=== PATIENT | female | born 1995 | race Caucasian/White ===

== ENCOUNTER 2025-02-03 10:50 | Emergency (ER) | payer OTHER, SELFPAY ==
--- NOTE | 2025-02-03 10:55 | ED_ITS ---
HPI - Skin/Abscess/Foreign Bdy General Chief complaint: Skin/Abscess/Foreign Body Stated complaint: Staph Infection Source: patient and RN notes reviewed Mode of arrival: ambulatory Limitations: no limitations History of Present Illness HPI narrative: Patient is a 29-year-old female who presents to the [facility] with complaints of rash to her chin. She states that the rash started yesterday after she wore quite a lot of makeup for a bridal shower. Patient states that she started feeling flushed in the area where the rash is prior to the rash developing. She states that she has had a similar rash in the past that was treated with Mupirocin and Bactrim with success. Patient arrived to the ED with honey-crusted rash to her chin with clear yellow liquid drainage. Related Data Allergies Allergy/AdvReac Type Severity Reaction Status Date / Time No Known Allergies Allergy Unknown Verified 02/03/25 10:52 Review of Systems Review of Systems: CONSTITUTIONAL: Denies fever, chills, or sweats. EYES: Denies visual changes, redness, or discharge. ENT: Denies otalgia and sore throat CARDIOVASCULAR: Denies chest pain, palpitations, or edema. RESPIRATORY: Denies cough or dyspnea. GASTROINTESTINAL: Denies abdominal pain, nausea, vomiting, or diarrhea. GENITOURINARY: Denies dysuria or hematuria. SKIN: Reports rash. MUSCULOSKELETAL: Denies back pain, joint pain, or myalgia. NEUROLOGIC: Denies headache, numbness, or weakness. Pertinent positives per HPI. PMFSH Comments At the time of my signature, I reviewed and agree with the nursing past medical, surgical, social, and family history. There is no relevant family history pertinent to the patient complaint. Exam Narrative: GENERAL: This is a well-nourished, well-developed patient, in no apparent distress. HEAD: normocephalic, atraumatic. EYES: Sclera clear/white. Vision is grossly intact. EARS: External ears normal. Hearing grossly intact. NOSE: External nose normal with no obvious nasal discharge, nares without redness, no rhinorrhea. THROAT: Mucous membranes moist, posterior pharynx clear. NECK: Neck supple, non-tender without lymphadenopathy, masses or thyromegaly. CARDIOVASCULAR: Regular rate and rhythm without murmurs, gallops, or rubs. RESPIRATORY: Clear to auscultation. Breath sounds equal bilaterally. No wheezes, rales, or rhonchi. GASTROINTESTINAL: Abdomen soft, non-tender, nondistended. Bowel sounds are active. No hepato-splenomegaly, or palpable masses. No guarding. SKIN: Honey-crusted rash to chin with clear yellow liquid drainage; consistent with impetigo. NEURO: awake, alert, and oriented to person, place and time. There were no obvious focal neurologic abnormalities. Course Course Level of Care: Express Care Visit Vital Signs Vital signs: Vital Signs Temperature 99.1 F 02/03/25 10:59 Pulse Rate 56 L 02/03/25 10:59 Respiratory Rate 16 02/03/25 10:59 Blood Pressure 126/74 02/03/25 10:59 Pulse Oximetry 99 02/03/25 10:59 Temperature 99.1 F 02/03/25 10:59 Pulse Rate 56 L 02/03/25 10:59 Respiratory Rate 16 02/03/25 10:59 Blood Pressure 126/74 02/03/25 10:59 Pulse Oximetry 99 02/03/25 10:59 Reviewed MDM - Skin/Abscess/Foreign Bdy MDM Narrative Medical decision making narrative: Clean with soap and water only; Avoid using alcohol and peroxide. Elevate the affected area if possible Alternate Tylenol/ibuprofen for as needed for pain Acetaminophen(Tylenol) 650- 1000mg every 4-6hours with max of 4000mg/day. Nonsteroidal anti-inflammatory agent (NSAIDs-ibuprofen): 400mg every 4-6hours with max 2400mg/day Take antibiotic until it's gone. Please schedule a follow up visit with your personal physician for further evaluation and treatment within 3-5days OR if your symptoms persist, change or worsen significantly before you can contact your personal physician then please, without delay, go to the emergency department for further evaluation. Differential Diagnosis Differential diagnosis: Likely abscess of skin or subcutaneous tissue, cellulitis, impetigo and contact dermatitis Critical Care Time Critical Care Time Critical Care Time: No Discharge Plan Discharge Clinical Impression: Impetigo Patient Disposition: Home, Self-Care Condition: Stable Instructions: Antibiotic Form, Impetigo (ED) Additional Instructions: Clean with soap and water only; Avoid using alcohol and peroxide. Elevate the affected area if possible Alternate Tylenol/ibuprofen for as needed for pain Acetaminophen(Tylenol) 650- 1000mg every 4-6hours with max of 4000mg/day. Nonsteroidal anti-inflammatory agent (NSAIDs-ibuprofen): 400mg every 4-6hours with max 2400mg/day Take antibiotic until it's gone. Please schedule a follow up visit with your personal physician for further evaluation and treatment within 3-5days OR if your symptoms persist, change or worsen significantly before you can contact your personal physician then please, without delay, go to the emergency department for further evaluation. Patient Language: Spanish Prescriptions: New mupirocin [Centany] 2 % ointment 1 applic topical TID Qty: 50 0RF sulfamethoxazole-trimethoprim 800-160 mg tablet 1 tablet PO Q12H 10 Days Qty: 20 0RF Follow-up/Referrals: PHYSICIAN,LIFE ENRICHMENT MANAGER [Primary Care Provider] - Time of Disposition: 11:19
[2025-02-03 10:59] VITALS: BP 126/74; PULSE 56; RESP 16; TEMP 37.3; O2SAT 99
== END 2025-02-03 11:20 | disposition home or self-care (01) ==
PROVIDERS: Emergency Provider Nurse Practitioner
DX: L01.00 Impetigo, unspecified (principal)
CPT/HCPCS: 87070; 87075; 87205; 99203; G0463

== ENCOUNTER 2025-02-26 18:09 | Emergency (ER) | payer OTHER, SELFPAY ==
--- NOTE | 2025-02-26 18:11 | ED.SKABFB ---
HPI - Skin/Abscess/Foreign Bdy General Chief complaint: Skin/Abscess/Foreign Body Stated complaint: RASH Time Seen by Provider: 02/26/25 18:10 Source: patient Mode of arrival: ambulatory Limitations: no limitations History of Present Illness HPI narrative: Sammy is a 29-year-old female patient presenting to the clinic today with complaints of a rash to her face. She reports that this is been going on for a couple weeks. She is getting in the next week and a half and is wanting the rash gone. States that she came in was diagnosed with impetigo and given prescription for Bactrim and mupirocin. States that the rash has improved however it is still there and seems to be getting worse. Has finished the Bactrim antibiotic. Cultures were done at the time of visit and were positive for Propionibacterium acnes/Cutibacterium acnes. 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 Related Data Allergies Allergy/AdvReac Type Severity Reaction Status Date / Time No Known Allergies Allergy Unknown Verified 02/26/25 18:14 Review of Systems Review of Systems: Pertinent positives per HPI. Patient denies any fever, chills, headache, visual changes, dizziness, cough, runny nose, sore throat, shortness of breath, chest pain, palpitations, nausea, vomiting, diarrhea, constipation, abdominal pain, or any urinary issues. PMFSH Comments At the time of my signature, I reviewed and agree with the nursing past medical, surgical, social, and family history. There is no relevant family history pertinent to the patient complaint. Exam Narrative: General: Well-developed, well nourished, in no apparent distress Head: Normocephalic, atraumatic. Cardio: Regular rate and rhythm, s1 and s2 normal, no murmur appreciated. Resp: Clear to auscultation bilaterally, no rhonchi, rales, wheezing or rubs. Integumentary: [place], warm, and dry, pustular acne to chin and cheeks. Course Course Emergency Course: Portions of this record may have been created with voice recognition software. Level of Care: Express Care Visit Vital Signs Vital signs: Vital Signs Temperature 37.1 C 02/26/25 18:21 Pulse Rate 57 L 02/26/25 18:21 Respiratory Rate 16 02/26/25 18:21 Blood Pressure 114/82 02/26/25 18:21 Pulse Oximetry 100 02/26/25 18:21 Temperature 37.1 C 02/26/25 18:21 Pulse Rate 57 L 02/26/25 18:21 Respiratory Rate 16 02/26/25 18:21 Blood Pressure 114/82 02/26/25 18:21 Pulse Oximetry 100 02/26/25 18:21 Vital signs reviewed MDM - Skin/Abscess/Foreign Bdy MDM Narrative Medical decision making narrative: At the time of visit patient is resting comfortably on the exam table. Patient appears to be nontoxic. Plan: I suspect patient has acne. Prescription for clindamycin and benzyl peroxide was sent to the pharmacy. Patient is adamant that this is caused by demodex mites. Sent in prescription for permethrin cream to use if other treatment is not affective. Recommend following up with a gathering machine feeder as soon as possible. Supportive measures were discussed with the patient and they voiced understanding discharge instructions and agrees to treatment plan. Return precautions reviewed Differential Diagnosis Differential diagnosis: Likely abscess of skin or subcutaneous tissue, viral exanthem, dermatophytosis, urticaria, herpes zoster, allergic reaction to drug, cellulitis, eczema, insect bites, impetigo, contact dermatitis and other (Parasitic infection, acne) Discharge Plan Discharge Clinical Impression: Acne Qualifiers: Acne type: unspecified acne Qualified Code(s): L70.9 - Acne, unspecified Patient Disposition: Home Condition: Stable Instructions: Antibiotic Form, Acne (ED) Additional Instructions: Your skin culture came back position for Cutibacterium acne/Propionibacterium acne Take clindamycin and use benzyl peroxide as prescribed May take daily probiotic 2 hours before 2 hours after taking the antibiotic-I would do this for 30 days. Increase fluids and stay well hydrated I do not believe that this is a demodex mite infection however, if symptoms do not improve within the week you may try using to the Permethrin cream Follow-up with your primary care doctor in 5-7 days if symptoms persist Follow up with Dermatology: Dr. [place] in [place], [place] [address], [place] [address] Phone:? Patient Language: Peruvian Prescriptions: New clindamycin HCl [Cleocin HCl] 300 mg capsule 300 mg PO TID 7 Days Qty: 21 0RF benzoyl peroxide [Acne Control(benzoyl peroxide)] 10 % cleanser 1 applic topical BID 30 Days Qty: 237 0RF permethrin 5 % cream 1 applic topical Q14D Qty: 60 0RF Rx Instructions: apply second treatment 14 days after first treatment if live mites remain Follow-up/Referrals: UNKNOWN,DOCTOR [Non-Staff] - Time of Disposition: 18:35 Quality NIHSS Nursing Documentation ED NIHSS nursing documentation: reviewed/agree
[2025-02-26 18:21] VITALS: BP 114/82; PULSE 57; RESP 16; TEMP 37.1; O2SAT 100
== END 2025-02-26 19:02 | disposition home or self-care (01) ==
PROVIDERS: Emergency Provider Nurse Practitioner Family
DX: L70.9 Acne, unspecified (principal)
CPT/HCPCS: 99213; G0463